=== PATIENT | male | born 1985 | race Two or more races ===

== ENCOUNTER 2019-12-04 11:01 | Emergency (ER) | payer OTHER ==
[2019-12-04] MEDS ORDERED: TETANUS/DIPHTHERIA/PERTUSSIS 0.5 ML SYRINGE IM ONE (11:23)
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
[2019-12-04 11:28] VITALS: BP 135/97
--- NOTE | 2019-12-04 11:48 | XRAY Report ---
Reason: nail through left great toe Procedure Date: 12/04/2019 Accession Number: [id number] / [id number] Procedure: XR - Toe(s) LT CPT Code: Final Report FULL RESULT: EXAM: LEFT FIRST TOE RADIOGRAPHY EXAM DATE: 12/04/2019 11:39 AM. CLINICAL HISTORY: Nail through left great toe. COMPARISON: None. TECHNIQUE: 4 views. FINDINGS: Bones: No fracture or bone lesion. Joints: No subluxations. Soft Tissues: No subcutaneous radiopaque foreign bodies. IMPRESSION: No fracture or subcutaneous radiopaque foreign body identified. If symptoms persist, suggest short-term follow-up x-rays to evaluate for potential interval bony changes. [facility]
== END 2019-12-04 12:16 | disposition home or self-care (01) ==
LOC: ED 11:01
DX: S91.132A Puncture wound without foreign body of left great toe without damage to nail, initial encounter (principal); S91.112A Laceration without foreign body of left great toe without damage to nail, initial encounter; W45.0XXA Nail entering through skin, initial encounter; Y93.H3 Activity, building and construction; Y92.69 Other specified industrial and construction area as the place of occurrence of the external cause; Y99.0 Civilian activity done for income or pay
CPT/HCPCS: 1040M; 73660; 90471; 90715; 99283